=== PATIENT | female | born 1980 | race Caucasian/White ===

== ENCOUNTER → 2022-12-28 | Outpatient (CLI) | payer MEDICAID | LOC: WOUNDCARE 13:25 | PROVIDERS: ATTEND Family Medicine | DX: I70.231 Atherosclerosis of native arteries of right leg with ulceration of thigh (principal); I96 Gangrene, not elsewhere classified; L97.112 Non-pressure chronic ulcer of right thigh with fat layer exposed; B37.2 Candidiasis of skin and nail; D50.8 Other iron deficiency anemias; E66.01 Morbid (severe) obesity due to excess calories; F17.210 Nicotine dependence, cigarettes, uncomplicated | CPT/HCPCS: 11042; 11045; 87070; 87077; 87205 ==

== ENCOUNTER → 2023-01-04 | Outpatient (CLI) | payer MEDICAID ==
[2023-01-04 11:43] LABS: BASOPHILS # (AUTO) 0.1 10^3/uL (0.0-0.1); BASOPHILS % (AUTO) 1 % (0-10); EOSINOPHILS # (AUTO) 0.2 10^3/uL (0.0-0.3); EOSINOPHILS % (AUTO) 2 % (0-10); HEMATOCRIT 32 % (35-52); HEMOGLOBIN 9.5 g/dL (11.5-16.0); LYMPHOCYTES % (AUTO) 18 % (12-44); MEAN CORPUSCULAR HEMOGLOBIN 24 pg (25-34); MEAN CORPUSCULAR HGB CONC 30 g/dL (32-36); MEAN CORPUSCULAR VOLUME 80 fL (80-99); MEAN PLATELET VOLUME 8.3 fL (9.0-12.2); MONOCYTES # (AUTO) 0.9 10^3/uL (0.0-1.0); MONOCYTES % (AUTO) 8 % (0-12); NEUTROPHILS # (AUTO) 7.8 10^3/uL (1.8-7.8); NEUTROPHILS % (AUTO) 71 % (42-75); PLATELET COUNT 366 10^3/uL (130-400); WHITE BLOOD COUNT 11.1 10^3/uL (4.3-11.0)
[2023-01-04 11:55] LABS: ALBUMIN 3.3 GM/DL (3.2-4.5); POTASSIUM 3.5 MMOL/L (3.6-5.0)
[2023-01-04 11:56] LABS: CALCIUM 8.6 MG/DL (8.5-10.1)
[2023-01-04 11:58] LABS: TOTAL PROTEIN 6.9 GM/DL (6.4-8.2)
[2023-01-04 11:59] LABS: BILIRUBIN,TOTAL 0.3 MG/DL (0.1-1.0)
[2023-01-04 12:01] LABS: CREATININE SERUM 0.65 MG/DL (0.60-1.30)
[2023-01-04 12:17] LABS: ERYTHROCYTE SEDIMENTATION RATE 44 MM/HR (0-20)
== END ==
LOC: WOUNDCARE 10:33
PROVIDERS: ATTEND Family Medicine
DX: L97.112 Non-pressure chronic ulcer of right thigh with fat layer exposed (principal); I70.231 Atherosclerosis of native arteries of right leg with ulceration of thigh; E66.01 Morbid (severe) obesity due to excess calories; B37.2 Candidiasis of skin and nail; D50.8 Other iron deficiency anemias; F17.210 Nicotine dependence, cigarettes, uncomplicated; T87.89 Other complications of amputation stump; B96.5 Pseudomonas (aeruginosa) (mallei) (pseudomallei) as the cause of diseases classified elsewhere; Z16.35 Resistance to multiple antimicrobial drugs; I96 Gangrene, not elsewhere classified
CPT/HCPCS: 36415; 80053; 85025; 85652; 86141; 99215

== ENCOUNTER → 2023-02-10 | Outpatient (CLI) | payer MEDICAID | LOC: WOUNDCARE 14:28 | PROVIDERS: ATTEND Family Medicine | DX: I70.231 Atherosclerosis of native arteries of right leg with ulceration of thigh (principal); I96 Gangrene, not elsewhere classified; L97.112 Non-pressure chronic ulcer of right thigh with fat layer exposed; T87.89 Other complications of amputation stump; B37.2 Candidiasis of skin and nail; D50.8 Other iron deficiency anemias; E66.01 Morbid (severe) obesity due to excess calories; Z68.41 Body mass index [BMI] 40.0-44.9, adult | CPT/HCPCS: 11042; 11045 ==

== ENCOUNTER → 2023-02-17 | Outpatient (CLI) | payer MEDICAID ==
[2023-02-17 15:09] LABS: BASOPHILS % (AUTO) 0 % (0-10); EOSINOPHILS # (AUTO) 0.1 10^3/uL (0.0-0.3); EOSINOPHILS % (AUTO) 2 % (0-10); HEMATOCRIT 35 % (35-52); HEMOGLOBIN 10.4 g/dL (11.5-16.0); LYMPHOCYTES # (AUTO) 1.6 10^3/uL (1.0-4.0); LYMPHOCYTES % (AUTO) 27 % (12-44); MEAN CORPUSCULAR HEMOGLOBIN 25 pg (25-34); MEAN CORPUSCULAR HGB CONC 30 g/dL (32-36); MEAN CORPUSCULAR VOLUME 81 fL (80-99); MEAN PLATELET VOLUME 8.9 fL (9.0-12.2); MONOCYTES # (AUTO) 0.7 10^3/uL (0.0-1.0); MONOCYTES % (AUTO) 11 % (0-12); NEUTROPHILS # (AUTO) 3.6 10^3/uL (1.8-7.8); NEUTROPHILS % (AUTO) 60 % (42-75); PLATELET COUNT 398 10^3/uL (130-400); WHITE BLOOD COUNT 6.1 10^3/uL (4.3-11.0)
[2023-02-17 15:26] LABS: CREATININE SERUM 0.77 MG/DL (0.60-1.30); POTASSIUM 3.4 MMOL/L (3.6-5.0)
[2023-02-17 15:35] LABS: ERYTHROCYTE SEDIMENTATION RATE 43 MM/HR (0-20)
== END ==
LOC: WOUNDCARE 13:53
PROVIDERS: ATTEND Family Medicine
DX: I96 Gangrene, not elsewhere classified (principal); L97.112 Non-pressure chronic ulcer of right thigh with fat layer exposed; I70.239 Atherosclerosis of native arteries of right leg with ulceration of unspecified site; E66.01 Morbid (severe) obesity due to excess calories; B37.2 Candidiasis of skin and nail; D50.8 Other iron deficiency anemias; T87.89 Other complications of amputation stump; M86.652 Other chronic osteomyelitis, left thigh
CPT/HCPCS: 11042; 11045; 36415; 80048; 82607; 82728; 82746; 83540; 83550; 84134; 85025; 85652; 86141

== ENCOUNTER → 2023-02-24 | Outpatient (CLI) | payer MEDICAID | LOC: WOUNDCARE 13:57 | PROVIDERS: ATTEND Family Medicine | DX: I70.231 Atherosclerosis of native arteries of right leg with ulceration of thigh (principal); L97.112 Non-pressure chronic ulcer of right thigh with fat layer exposed; T87.89 Other complications of amputation stump; D50.8 Other iron deficiency anemias; B37.2 Candidiasis of skin and nail; M86.651 Other chronic osteomyelitis, right thigh; E66.01 Morbid (severe) obesity due to excess calories; Z68.41 Body mass index [BMI] 40.0-44.9, adult | CPT/HCPCS: 10140; 11042 ==